=== PATIENT | female | born 1930 | race Caucasian/White ===

== ENCOUNTER 2017-02-18 06:55 | Observation (INO) ==
--- NOTE | 2017-02-18 07:29 | Emergency Department Note ---
General Adult HPI - General Source: patient Mode of arrival: wheelchair <Joe Pedro Doreen - Last Filed: 02/18/17 07:33> <Alan Huizar - Last Filed: 02/18/17 10:49> - General Chief complaint: Weakness Stated complaint: weakness Time Seen by Provider: 02/18/17 07:26 - History of Present Illness HPI Narrative: This patient had difficulty getting up and using the bathroom today due to generalized weakness especially in her legs. She has no other specific complaints. Denies cough fever sore throat dysuria frequency. (MayelaJoe ) - Related Data Home Medications Medication Instructions Recorded Confirmed acetaminophen 325 mg tablet 650 mg PO Q4H PRN tab 01/06/15 02/18/17 aspirin 81 mg tablet,delayed 81 mg PO QDAY tab 01/06/15 02/18/17 release calcium carbonate-vitamin D3 600 1 cap PO QDAY cap 01/06/15 02/18/17 mg calcium-200 unit capsule chondroitin sulfate A 250 mg 250 mg PO QDAY cap 01/06/15 02/18/17 capsule glucosamine sulfate 500 mg tablet 1,500 mg PO QDAY tab 01/06/15 02/18/17 multivitamin capsule 1 tab-cap PO QDAY cap 01/06/15 02/18/17 vit C 150 mg-vit E 30 unit-lutein 1 cap PO QDAY cap 01/06/15 02/18/17 5 [id number] 3 150 mg capsule cholecalciferol (vitamin D3) 1,000 1,000 unit PO QDAY cap 04/13/16 02/18/17 unit capsule fexofenadine 60 mg tablet 60 mg PO BID 11/21/16 02/18/17 Wheelchair 0 each .ROUTE .MEDSUPPLY 02/18/17 02/18/17 Previous Rx's Medication Instructions Recorded Ciprofloxacin [Cipro] 500 mg PO BID #20 tablet 02/18/17 Allergies Allergy/AdvReac Type Severity Reaction Status Date / Time codeine Allergy Severe Swelling Verified 02/18/17 07:00 of Lip/Tongue/Throat diazepam [From Valium] AdvReac Intermediate Weakness Verified 02/18/17 07:00 naproxen [From Aleve] AdvReac Intermediate Itching Verified 02/18/17 07:00 acetaminophen [From Ultracet] AdvReac Mild Nausea Verified 02/18/17 07:00 tramadol [From Ultracet] AdvReac Mild Nausea Verified 02/18/17 07:00 Review of Systems Constitutional: Denies: fever, chills Eyes: Denies: eye pain ENT ED: Denies: ear pain, throat pain Cardiovascular: Denies: chest pain Respiratory: Denies: cough, dyspnea Gastrointestinal: Denies: abdominal pain, nausea Genitourinary: Denies: urgency, dysuria, frequency Musculoskeletal: Denies: back pain Integumentary: Denies: rash <Joe Pedro - Last Filed: 02/18/17 07:33> Past Medical History - Past Medical History Medical history: Reports: arthritis, GERD, hyperlipidemia, osteoporosis, other ( History of cerebral atrophy) Surgical history ED: Reports: non-contributory, orthopedic, other, other ( History of subdural bleed) - Social History Alcohol use: Reports: None Drug use: Reports: none <Joe Pedro - Last Filed: 02/18/17 07:33> <Alan Huizar - Last Filed: 02/18/17 10:49> - Past Medical History [facility] Narrative: Medical History (Last Updated 01/28/17 @ 01:41 by Omar Robertson MD) Concussion without loss of consciousness (Acute) Encounter for removal of sutures (Acute) Osteopenia (Chronic) Arthritis, hip (Acute) Urinary tract infection (Acute) Weakness of left lower extremity (Chronic) History of bone density study (Chronic) Abdominal pain (Chronic) Abdominal symptoms (Chronic) Neurogenic syncope (Chronic) Compression fracture of lumbar vertebra (Chronic) History of sigmoidoscopy (Resolved 07/27/13) Dyslipidemia (Chronic) Osteoporosis screening (Chronic) DJD (degenerative joint disease) (Chronic) Neurocardiogenic syncope (Chronic) Diverticulosis of colon (Chronic 03/12/07) Tubular adenoma of colon (Chronic 04/24/13) Macular degeneration (Chronic) Tinnitus (Chronic) Cerebral atrophy (Inactive 12/25/14) Closed fracture of clavicle (Resolved) 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) Degeneration of cervical intervertebral disc (Inactive 12/25/14) 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) Glaucoma (Inactive) Head injury (Resolved 05/08/14) Herpes zoster (Resolved) Low back pain (Chronic) 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) Pseudophakia (Resolved) Subdural hematoma without coma (Inactive 08/11/14) Visual disturbance (Resolved) Past Surgical History (Last Updated 12/06/16 @ 14:28 by Sensorist) S/P wrist surgery (Resolved 05/28/13) History of tonsillectomy (Resolved) History of thumb surgery (Resolved 05/28/13) History of hysterectomy (Resolved) History of foot surgery (Resolved) History of colonoscopy with polypectomy (Resolved 03/12/07) History of breast biopsy (Resolved) Family History Father Acute myocardial infarction, Onset Age: 54 Mother Malignant neoplasm of uterus (Joe Pedro) Physical Exam - General Limitations: no limitations General appearance: alert, in no apparent distress - Head Head exam: atraumatic, normocephalic - Eye Eye exam: Present: normal appearance - ENT ENT exam: normal exam - Neck Neck exam: Present: normal inspection - Chest Chest inspection: Present: normal inspection - Respiratory Respiratory exam: Present: normal lung sounds bilaterally - Cardiovascular Cardiovascular exam: Present: regular rate, normal rhythm, normal heart sounds - Abdominal Exam Abdominal exam: Present: soft. Absent: distention, tenderness - Neurological Exam Neurological exam: Present: alert, oriented X3 - Expanded Neurological Exam Motor strength - LUE: 5/5 Motor strength - RUE: 5/5 Motor strength - LLE: 5/5 Motor strength - RLE: 5/5 - Psychiatric Psychiatric exam: Present: normal affect, normal mood - Skin Skin exam: Present: warm, dry, intact, normal color <Joe Pedro - Last Filed: 02/18/17 07:33> Vital Signs Temperature 98.6 F 02/18/17 06:55 Pulse Rate 89 02/18/17 06:55 Respiratory Rate 16 02/18/17 06:55 Blood Pressure 160/92 02/18/17 06:55 Pulse Oximetry (%) 97 02/18/17 06:55 Temperature 98.6 F 02/18/17 06:55 Pulse Rate 77 02/18/17 10:01 Respiratory Rate 20 02/18/17 10:24 Blood Pressure 151/79 02/18/17 10:01 Pulse Oximetry (%) 95 02/18/17 10:01 Medical Decision Making <Joe Pedro - Last Filed: 02/18/17 07:33> - Lab Data Lab results reviewed: Yes I reviewed the patient's lab results. Result diagrams: 02/18/17 07:30 02/18/17 07:33 - Radiology Data Radiology results reviewed: Yes I reviewed the patient's radiology results. - EKG Data EKG #1 EKG attestation: Yes I reviewed and interpreted this EKG. <Alan Huizar - Last Filed: 02/18/17 10:49> - Lab Data Lab Results 02/18/17 02/18/17 02/18/17 Range/Units 07:30 07:33 07:33 WBC 7.8 (4.5-11.0) K/mcL RBC 4.54 (4.00-5.20) M/mcL Hgb 14.0 (12.0-15.0) g/dL Hct 42.6 (36.0-48.0) % MCV 93.8 (80.0-100.0) fL MCH 30.8 (26.0-34.0) pg MCHC 32.8 (31.0-36.0) g/dL RDW 14.6 H (11.5-14.5) % Plt Count 213 (140-440) K/mcL MPV 7.7 (7.4-10.4) fL Gran % 58.5 (38.0-78.0) % Lymph % (Auto) 28.9 (15.5-49.0) % Evangeline % (Auto) 8.7 (1.0-12.0) % Eos % (Auto) 3.4 (0.0-7.0) % Baso % (Auto) 0.5 (0.0-2.0) % Gran # 4.5 (1.8-8.0) K/mcL Lymph # (Auto) 2.2 (1.5-4.8) K/mcL Evangeline # (Auto) 0.7 (0.1-0.9) K/mcL Eos # (Auto) 0.3 (0.0-0.7) K/mcL Baso # (Auto) 0 (0.0-0.3) K/mcL Sodium 143 (133-145) mmol/L Potassium 3.7 (3.3-5.1) mmol/L Chloride 104 (96-108) mmol/L Carbon Dioxide 27 (22-30) mmol/L Anion Gap 12.0 (8-16) BUN 22 (8-23) mg/dl Creatinine 0.7 (0.6-1.1) mg/dl GFR Calculation 78 Glucose 99 (70-105) mg/dL Calcium 9.2 (8.6-10.4) mg/dl Total Bilirubin 0.3 (0.0-1.0) mg/dL AST 22 (0-37) U/l ALT 16 (0-40) U/l Alkaline Phosphatase 69 (39-117) U/L Troponin T < 0.01 (0-0.03) ng/ml Total Protein 7.5 (5.9-8.4) gm/dL Albumin 3.9 (3.2-5.2) gm/dL Globulin 3.6 (2.2-3.7) gm/dL Albumin/Globulin Ratio 1.1 (1.0-2.3) Urine Color Urine Appearance Urine pH (5.0-9.0) Ur Specific [place] (1.000-1.035) Urine Protein (NEG) mg/dL Urine Glucose (UA) (NEG) mg/dL Urine Ketones (NEG) mg/dL Urine Occult Blood (<0.03) mg/dL Urine Nitrate (NEG) Urine Bilirubin (NEG) mg/dL Urine Urobilinogen (NEG) mg/dL Ur Leukocyte Esterase (NEG) /uL Ur Culture Indicated? 02/18/17 Range/Units 09:17 WBC (4.5-11.0) K/mcL RBC (4.00-5.20) M/mcL Hgb (12.0-15.0) g/dL Hct (36.0-48.0) % MCV (80.0-100.0) fL MCH (26.0-34.0) pg MCHC (31.0-36.0) g/dL RDW (11.5-14.5) % Plt Count (140-440) K/mcL MPV (7.4-10.4) fL Gran % (38.0-78.0) % Lymph % (Auto) (15.5-49.0) % Evangeline % (Auto) (1.0-12.0) % Eos % (Auto) (0.0-7.0) % Baso % (Auto) (0.0-2.0) % Gran # (1.8-8.0) K/mcL Lymph # (Auto) (1.5-4.8) K/mcL Evangeline # (Auto) (0.1-0.9) K/mcL Eos # (Auto) (0.0-0.7) K/mcL Baso # (Auto) (0.0-0.3) K/mcL Sodium (133-145) mmol/L Potassium (3.3-5.1) mmol/L Chloride (96-108) mmol/L Carbon Dioxide (22-30) mmol/L Anion Gap (8-16) BUN (8-23) mg/dl Creatinine (0.6-1.1) mg/dl GFR Calculation Glucose (70-105) mg/dL Calcium (8.6-10.4) mg/dl Total Bilirubin (0.0-1.0) mg/dL AST (0-37) U/l ALT (0-40) U/l Alkaline Phosphatase (39-117) U/L Troponin T (0-0.03) ng/ml Total Protein (5.9-8.4) gm/dL Albumin (3.2-5.2) gm/dL Globulin (2.2-3.7) gm/dL Albumin/Globulin Ratio (1.0-2.3) Urine Color Yellow Urine Appearance Hazy Urine pH 7.0 (5.0-9.0) Ur Specific [place] 1.018 (1.000-1.035) Urine Protein Neg (NEG) mg/dL Urine Glucose (UA) Negative (NEG) mg/dL Urine Ketones Neg (NEG) mg/dL Urine Occult Blood Neg (<0.03) mg/dL Urine Nitrate Neg (NEG) Urine Bilirubin Neg (NEG) mg/dL Urine Urobilinogen Neg (NEG) mg/dL Ur Leukocyte Esterase Neg (NEG) /uL Ur Culture Indicated? No Urinalysis lmdtx-by-brdn dipstick shows moderate leukocytes trace blood gravity 1.020 (Alan Huizar) - Radiology Data Chest x-ray shows no acute cardiopulmonary disease (Alan Huizar) - EKG Data EKG #1 EKG results narrative: EKG shows a rate of 75 with a left bundle branch block flattened T-wave in 1 with just slight inversion in aVL. Sinus rhythm (Alan Huizar) Disposition <Joe Pedro - Last Filed: 02/18/17 07:33> Pt seen by TUBE COVERER/PA only: No ( only) <Alan Huizar - Last Filed: 02/18/17 10:49> Clinical Impression: Weakness UTI (urinary tract infection) Qualifiers: Urinary tract infection type: acute cystitis Hematuria presence: with hematuria Qualified Code(s): N30.01 - Acute cystitis with hematuria Summary: Workup done for weakness. Given IV fluids. Found to have UTI and treated with Rocephin here with prescription for ciprofloxacin sent to pharmacy. Attempted to send this patient home after getting antibiotics but patient is unable to stand or transfer-which she was able to do 2 days ago. I discussed the case with Dr. Pierre the hospitalist who agreed to accept the patient for treatment of UTI with global weakness. (Alan Huizar) Disposition: Xfer As Outpt/Obs ([facility]) Condition: Fair Prescriptions: Ciprofloxacin [Cipro] 500 mg PO BID #20 tablet Referrals: Francis Meek MD [Primary Care Provider] -
[2017-02-18] MEDS ORDERED: 0.9 % SODIUM CHLORIDE 1,000 ML IV ONE (07:30)
[2017-02-18 08:18] LABS: Basophils # (Auto) 0 K/mcL (0.0-0.3); Basophils % (Auto) 0.5 % (0.0-2.0); Eosinophils # (Auto) 0.3 K/mcL (0.0-0.7); Eosinophils % (Auto) 3.4 % (0.0-7.0); Granulocytes % (Auto) 58.5 % (38.0-78.0); Lymphocytes # (Auto) 2.2 K/mcL (1.5-4.8); Lymphocytes % (Auto) 28.9 % (15.5-49.0); Mean Cell Volume 93.8 fL (80.0-100.0); Mean Corpuscular HGB Conc 32.8 g/dL (31.0-36.0); Mean Corpuscular Hemoglobin 30.8 pg (26.0-34.0); Monocytes # (Auto) 0.7 K/mcL (0.1-0.9); Monocytes % (Auto) 8.7 % (1.0-12.0); Platelet Count 213 K/mcL (140-440); RBC 4.54 M/mcL (4.00-5.20); Red Cell Distribution Width 14.6 % (11.5-14.5)
[2017-02-18 08:39] LABS: ALT/SGPT 16 U/l (0-40); Albumin 3.9 gm/dL (3.2-5.2); Albumin/Globulin Ratio 1.1 (1.0-2.3); Alkaline Phosphatase 69 U/L (39-117); Blood Urea Nitrogen 22 mg/dl (8-23)
--- NOTE | 2017-02-18 08:57 | XRay Report ---
CLINICAL INFORMATION: Shortness of breath and weakness COMPARISON: 01/13/2015 FINDINGS: The heart is borderline enlarged, but unchanged. Mediastinum and pulmonary vessels are normal. Lungs are clear. No effusions. IMPRESSION: Borderline cardiomegaly - stable. No acute disease Interpreted and Authenticated by: Jermaine Ruffin 02/18/17
[2017-02-18] MEDS ORDERED: cefTRIAXone 1 GM in DEXTROSE 5% IN WATER 50 ML IV ONE (10:08)
[2017-02-18 10:09] LABS: Appearance,Urine HAZY; Bilirubin,Urine NEG (NEG); Color,Urine YELLOW; Glucose,Urine (UA) NEGATIVE (NEG); Leukocyte Esterase,Urine NEG /uL (NEG); Nitrate,Urine NEG (NEG); Protein,Urine NEG (NEG); Specific Gravity,Urine 1.018 (1.000-1.035); Urine Blood NEG mg/dL (<0.03); Urobilinogen,Urine NEG (NEG)
[2017-02-18] MEDS ORDERED: ONDANSETRON 4 MG/2 ML VIAL IV PRN (12:07)
[2017-02-18] MEDS ORDERED: DOCUSATE SODIUM 100 MG CAPSULE PO PRN (12:07)
[2017-02-18] MEDS ORDERED: MAGNESIUM HYDROXIDE 30 ML ORAL.SUSP PO PRN (12:07)
--- NOTE | 2017-02-18 12:08 | Internal Med History&Physical ---
Medical - H&P: HPI Patient information: Note initiated : 02/18/17 at 12:05 pm Patient: Shantelle Evangelista a 87 y/o F admitted on 02/18/17 for Weakness. History of present illness: Ms. Evangelista is a 87 year old female who lives at home with her . He reports she was in her normal state of health until about 2 years ago when she fell and hit her head and suffered a concussion. He said she seemed to suffer a real setback at that time. Old records indicate a subdural hematoma found in 2014. Then, about 4 months ago, she slipped in the tub, and hit her head again, causing a scalp laceration. He says since that time she has really been too weak to walk, and he generally has to get her up in the morning, help her get dressed, and then help her into a wheelchair. He helps her with toileting in most activities of daily living. She has been receiving physical therapy twice a week, and just a few days ago was able to stand up and walk to the bathroom with a walker, for the first time in years. However, this morning, he said she was rather limp and he could not get her to stand up at all. She just seemed extremely fatigued. She has not complained of fever or chills. She says she may have been a little bit dizzy, but is not sure. She does have chronic urinary frequency, but does not think this is changed. She denied painful urination. She denies headaches , new eye or ear symptoms, sore throat or cough, chest pain or palpitations, shortness of breath, abdominal pain, nausea or vomiting, diarrhea or constipation. He initially tells me that her memory is fine, but then admits that sometimes she does not even seem to recognize him. He did tell me that he believes she took a Tylenol PM last night before bed, for uncertain reasons. This is a new medication for her. ER evaluation showed elevated blood pressure, and apparent urinary tract infection. The ER gave her fluids and antibiotics, and try to ambulate her, but she was just too weak to even sit up on her own. She has now admitted for further observation and treatment. Medical History Arthritis, hip (Acute) Concussion without loss of consciousness, 2 years ago, with progressive weakness since then. Encounter for removal of sutures (Acute) Osteopenia (Acute) noted on 2015 DEXA Urinary tract infection (Acute) Abdominal pain (Chronic) CT neg 03/2015 Compression fracture of lumbar vertebra (Chronic) DJD (degenerative joint disease) (Chronic) Multi-joint degenerative arthritis with probably a component of left hip bursitis. Diverticulosis of colon (Chronic 03/12/07) 03/12/07--Colonoscopy--Dr. Kathleen--Normal colonoscopy; moderately severe but uncomplicated diverticulosis. No rescreen unless new clinical issue arises. Dyslipidemia (Chronic) Currently on Zocor & watches diet; no myalgias. History of bone density study (Chronic) T score -0.7 spine//-1.3 hip 02/2010 Low back pain (Chronic) H/O low back pain wtih previous spinal compression fractures and documented osteoporosis in the late with a T-score of -4.1. Prolonged use of bisphosphonates--Fosamax D/C'd 2009. Normal bone density 02/2010. Macular degeneration (Chronic) Neurocardiogenic syncope (Chronic) H/O neurocardiogenic syncope. Previous treatment with beta bulmaro. Stable office treadmill 04/2009, recurrent near syncope, palpitations with negative [facility] 02/2011. Cardiology review with Dr. Moore 03/2011--stable. Osteoporosis screening (Chronic) H/O osteoporosis compression fractures. Stable bone density 03/16/10 with Spine T-score -0.7 and Hip T-score -1.3. Normal Vitamin D level 03/13/10 at 38.2. Previously on Fosamax--discontinued 2009. Monitor N-telopeptide yearly. Tinnitus (Chronic) Pulsatile tinnitus with negative MRI and ENT review--December through February 2011. Tubular adenoma of colon (Chronic 04/24/13) 04/24/13 Colonoscopy--Dr. Kathleen--Tubular adenomas. 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 Closed fracture of clavicle (Resolved) Head injury (Resolved 05/08/14) ER Dr. Dexter; Fallen Herpes zoster (Resolved) Episode of herpes zoster 10/2010. 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 Parker Surgical History History of breast biopsy (Resolved) Previous breast biopsy X2. Breast exam stable; currently declines mammogram. History of colonoscopy with polypectomy (Resolved 03/12/07) 03/12/07--Colonoscopy--Dr. Kathleen--Normal colonoscopy; moderately severe but uncomplicated diverticulosis. No rescreen unless new clinical issue arises. 04/24 Colonoscopy--Dr. Kathleen--Tubular adenomas. 07/27/2013-- Hyperplastic polyp. History of foot surgery (Resolved) Foot surgery 12/1997 and 08/1999 History of hysterectomy (Resolved) S/P hysterectomy 1970; ovaries remain. Negative bimanual. Stable breast exam-- declines mammogram. History of thumb surgery (Resolved 05/28/13) Right thumb carpometacarpal joint ligament reconstruction and tendon interposition using flexor carpi redialis tendon autograft. History of tonsillectomy (Resolved) 1937 S/P wrist surgery (Resolved 05/28/13) Right wrist trapeziectomy Medication List Tylenol PM, 1 dose for the first time, last night. acetaminophen 650 mg (2 x 325 mg) PO Q4H PRN aspirin 81 mg PO QDAY calcium carbonate-vitamin D3 600 mg calcium- 200 unit 1 cap PO QDAY cholecalciferol (vitamin D3) 1,000 units PO QDAY chondroitin sulfate A 250 mg PO QDAY glucosamine sulfate 1,500 mg (3 x 500 mg) PO QDAY multivitamin capsule 1 tab-cap PO QDAY vit C-vit [id number] [id number] pv-qtji-no-mg 1 cap PO QDAY wheelchair with accessories. use as directed. GUNNAR: Lifetime Allergies/Adverse Reactions codeine Allergy Swelling of Lip/Tongue/Throat diazepam [From Valium] Adverse Reaction Weakness naproxen [From Aleve] Adverse Reaction Itching tramadol [From Ultracet] Adverse Reaction Nausea Family History Father Acute myocardial infarction, Onset Age: 54 Mother Malignant neoplasm of uterus Hysterectomy for Uterine CA at an older age. The patient states she cannot recall this at this time. Social History The patient is , and lives at home with her , who acts as her caregiver. They have been for more than 50 years. She says she drinks 1 glass of wine per day. She does not use tobacco or drugs. She has 2 sons, one lives in [place], and the other into [facility]. She generally gets around in a wheelchair now, and her helps her transfer in and out of that. Medical - H&P: Meds Home Medications Medication Instructions Recorded Confirmed Type acetaminophen 325 mg tablet 650 mg PO Q4H PRN tab 01/06/15 02/18/17 History aspirin 81 mg tablet,delayed 81 mg PO QDAY tab 01/06/15 02/18/17 History release calcium carbonate-vitamin D3 600 1 cap PO QDAY cap 01/06/15 02/18/17 History mg calcium-200 unit capsule chondroitin sulfate A 250 mg 250 mg PO QDAY cap 01/06/15 02/18/17 History capsule glucosamine sulfate 500 mg tablet 1,500 mg PO QDAY tab 01/06/15 02/18/17 History multivitamin capsule 1 tab-cap PO QDAY cap 01/06/15 02/18/17 History vit C 150 mg-vit E 30 unit-lutein 1 cap PO QDAY cap 01/06/15 02/18/17 History 5 jj-pkrwpkdf-lzzxe 3 150 mg capsule cholecalciferol (vitamin D3) 1,000 1,000 unit PO QDAY cap 04/13/16 02/18/17 History unit capsule fexofenadine 60 mg tablet 60 mg PO BID 11/21/16 02/18/17 History Ciprofloxacin [Cipro] 500 mg PO BID #20 tablet 02/18/17 Rx Wheelchair 0 each .ROUTE .MEDSUPPLY 02/18/17 02/18/17 History Allergies Allergy/AdvReac Type Severity Reaction Status Date / Time codeine Allergy Severe Swelling Verified 02/18/17 07:00 of Lip/Tongue/Throat diazepam [From Valium] AdvReac Intermediate Weakness Verified 02/18/17 07:00 naproxen [From Aleve] AdvReac Intermediate Itching Verified 02/18/17 07:00 tramadol [From Ultracet] AdvReac Mild Nausea Verified 02/18/17 07:00 Medical - H&P: Exam - Constitutional Vitals: Temp Pulse Resp BP Pulse Ox 98.6 F 88 20 165/94 97 02/18/17 06:55 02/18/17 11:01 02/18/17 10:24 02/18/17 11:01 02/18/17 11:01 On exam, she is a very frail appearing elderly female, who is otherwise in no acute distress. She appears a bit fatigued. Oxygen level did drop to 87% saturation at one point, on room air. Pressure peaked at 210/112, but is most recently 142/65. . Head: Normocephalic, atraumatic. Eyes: PERRLA, EOMI, anicteric. Ears: TMs and canals are clear. Pharynx: Is clear. Mucosa appears normal. Posterior pharynx looks fine. Neck: Is supple, without obvious JVD, lymphadenopathy, thyromegaly, bruits. Cardiac exam: Shows regular rate and rhythm with normal S1 and S2. There may be a very soft systolic murmur at the apex. No rubs or gallops are noted. Lungs: Are clear to auscultation, without rales, rhonchi, wheezes. Abdomen: Is soft, without guarding or rebound. Bowel sounds are normoactive. She does indicate some tenderness in the lower abdomen, mainly in the suprapubic area. Extremities: Show no cyanosis, clubbing, edema. Neurologic exam: Her speech is very soft, and just slightly slurred. She is alert, and answers questions appropriately, but does appear a bit forgetful. She is calm and cooperative. Otherwise, her exam is grossly nonfocal. Skin exam: Does not show any rashes or other worrisome lesions. Medical - H&P: Reslt - Labs CBC & Chem 7: 02/18/17 07:30 02/18/17 07:33 Labs: February 18: CBC differential shows RDW of 14.6. Otherwise differential is normal. Troponin T is normal at less than 0.01 Urinalysis shows a pH of 7.0, specific gravity 1.018, negative nitrites, negative leukocyte esterase. Chest x-ray: Shows borderline cardiomegaly. No obvious infiltrates or congestion. EKG shows apparent normal sinus rhythm at a rate of about 75. There is left axis deviation, and slow R-wave progression consistent with possible old anteroseptal [place], versus intraventricular conduction delay. I do not see an old EKG in the chart, to compare. Medical - H&P: A/P (1) Weakness Current visit: Yes Status: Acute (2) Elevated BP without diagnosis of hypertension Current visit: No Status: Acute (3) Neurocardiogenic syncope Problem details: H/O neurocardiogenic syncope. Previous treatment with beta bulmaro. Stable office treadmill 04/2009, recurrent near syncope, palpitations with negative [facility] 02/2011. Cardiology review with Dr. Moore 03/2011 --stable. Current visit: No Status: Chronic - Narrative A/P Narrative: #1. Neurologic. Acute and subacute weakness, with general decline at home over the last couple of years. She has had several falls, with at least 2 closed head injuries. She did take Tylenol with Benadryl last night, and this may well have been enough to depress her mental status and just not allow her to wake up and be functional today. I was told that she had evidence of a bladder infection, but her urinalysis looks fine to me. Apparently a urine dip in the ER suggested increased leukocyte esterase. -Because the patient is too weak for her to handle at home, she was admitted for observation. -IV fluids. -Norris catheter at her request, so she does not have to get up and down to urinate. -Withhold Benadryl and any other medications with MASTER PLANNER depressant effects. -I suspect she has underlying dementia, given her memory issues and her decline physically over the last couple of years. Certainly if she has Alzheimer's, we should be avoiding anticholinergic drugs. She has had at least one office visit , where the complained of increased drooling. -PT evaluation. -Office records indicate the has adamantly refused to consider assisted living in the past. We will ask case management to look into the living situation as well. Her elderly may ultimately need more help at home with the patient, than they are currently receiving. -If her strength does not improve, consideration could be given to follow-up head CT and/or MRI. 2. Hypertension. Patient has had elevated blood pressures in her primary care office, as well as here today. Blood pressure seems to be improving though, now that she is comfortable. Continue to monitor. 3. I discussed CODE STATUS with the patient and her . He would like her to remain a full code at this time, even though we discussed that if she needed to be coated she would not likely have a good outcome. Next 4. DVT prophylaxis: Subcu heparin. 5. History of arthritis, osteopenia, compression fractures. Continue Tylenol as needed for pain. It sounds like she generally does not require more than that. #6. Cardiac. 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 She apparently has not had any events recently. Approximately 55 minutes was spent today, reviewing the patient's old records, reviewing her case with the ER MD, reviewing today's test results, interviewing and examining her, and then reviewing plan of care with her , and writing orders.
[2017-02-18] MEDS: DEXTROSE 5%-1/2NS W/20MEQ KCL 1,000 ML IV SCH ×2 (12:18→20:27)
[2017-02-18] MEDS: 0.9 % SODIUM CHLORIDE 10 ML SYRINGE IV SCH ×2 (12:45→22:00)
[2017-02-18] MEDS ORDERED: ACETAMINOPHEN 325 MG TABLET PO PRN (18:23)
[2017-02-19] MEDS: DEXTROSE 5%-1/2NS W/20MEQ KCL 1,000 ML IV SCH ×3 (04:10→21:41)
[2017-02-19 05:50] LABS: Basophils # (Auto) 0 K/mcL (0.0-0.3); Basophils % (Auto) 0.4 % (0.0-2.0); Eosinophils # (Auto) 0.2 K/mcL (0.0-0.7); Granulocytes % (Auto) 61.4 % (38.0-78.0); Lymphocytes # (Auto) 2.3 K/mcL (1.5-4.8); Lymphocytes % (Auto) 27.3 % (15.5-49.0); Mean Cell Volume 93.8 fL (80.0-100.0); Mean Corpuscular HGB Conc 33.6 g/dL (31.0-36.0); Mean Corpuscular Hemoglobin 31.5 pg (26.0-34.0); Monocytes # (Auto) 0.8 K/mcL (0.1-0.9); Monocytes % (Auto) 8.9 % (1.0-12.0); Platelet Count 246 K/mcL (140-440); RBC 4.39 M/mcL (4.00-5.20); Red Cell Distribution Width 14.1 % (11.5-14.5)
[2017-02-19 06:04] LABS: ALT/SGPT 14 U/l (0-40); Albumin 3.7 gm/dL (3.2-5.2); Albumin/Globulin Ratio 1.2 (1.0-2.3); Alkaline Phosphatase 70 U/L (39-117); Bilirubin,Direct < 0.2 mg/dL (0.0-0.3); Blood Urea Nitrogen 8 mg/dl (8-23); Gamma Glutamyl Transpeptidase 12 U/L (5-36); Magnesium 1.9 mg/dL (1.6-2.5); Uric Acid 2.9 mg/dL (2.5-8.0)
[2017-02-19] MEDS: 0.9 % SODIUM CHLORIDE 10 ML SYRINGE IV SCH ×3 (06:09→21:41)
[2017-02-19] MEDS: MULTIVIT,THER IRON,CA,FA & MIN 1 TABLET PO SCH (09:21)
[2017-02-19] MEDS: VITAMIN D3 1,000 UNIT TABLET PO SCH (09:21)
[2017-02-19] MEDS: ASPIRIN 81 MG TAB.CHEW PO SCH (09:21)
[2017-02-19] MEDS: CALCIUM W/VIT D3 500 MG TABLET PO SCH (09:21)
[2017-02-19] MEDS: ENOXAPARIN 40 MG/0.4 ML SYRINGE SQ SCH (09:21)
[2017-02-19] MEDS: cefTRIAXone 1 GM in DEXTROSE 5% IN WATER 50 ML IV SCH (09:21)
[2017-02-19] MEDS: CHONDROITIN SULFATE PO SCH (10:31)
[2017-02-19] MEDS: GLUCOSAMINE SULFATE 1500 MG PO SCH (10:31)
--- NOTE | 2017-02-19 12:42 | Internal Med Progress Note ---
Medical - PN: Subj Patient information: Note initiated : 02/19/17 at 12:40 pm Service Date, if different from initiated Date: [] Patient: Shantelle Evangelista a 87 y/o F admitted on 02/18/17 for Weakness/UTI. Chief Complaint: [] Interval history: February 18, 2017: History of present illness: Ms. Evangelista is a 87 year old female who lives at home with her . He reports she was in her normal state of health until about 2 years ago when she fell and hit her head and suffered a concussion. He said she seemed to suffer a real setback at that time. Old records indicate a subdural hematoma found in 2014. Then, about 4 months ago, she slipped in the tub, and hit her head again, causing a scalp laceration. He says since that time she has really been too weak to walk, and he generally has to get her up in the morning, help her get dressed, and then help her into a wheelchair. He helps her with toileting in most activities of daily living. She has been receiving physical therapy twice a week, and just a few days ago was able to stand up and walk to the bathroom with a walker, for the first time in years. However, this morning, he said she was rather limp and he could not get her to stand up at all. She just seemed extremely fatigued. She has not complained of fever or chills. She says she may have been a little bit dizzy, but is not sure. She does have chronic urinary frequency, but does not think this is changed. She denied painful urination. She denies headaches , new eye or ear symptoms, sore throat or cough, chest pain or palpitations, shortness of breath, abdominal pain, nausea or vomiting, diarrhea or constipation. He initially tells me that her memory is fine, but then admits that sometimes she does not even seem to recognize him. He did tell me that he believes she took a Tylenol PM last night before bed, for uncertain reasons. This is a new medication for her. ER evaluation showed elevated blood pressure, and apparent urinary tract infection. The ER gave her fluids and antibiotics, and try to ambulate her, but she was just too weak to even sit up on her own. She has now admitted for further observation and treatment. February 19: Overnight, the patient was quite confused, and kept insisting that her was in the next room. This morning she remains confused, and tells me that she was just walking around in her kitchen. Her admits that she is often confused like this at home. She remains a 2 person maximum assist to move from bed. I discussed rehab with the patient's , but he says she has never wanted to go to rehab, and he would prefer to have her at home. Social work is discussing with him options for care, as he would not be able to provide her safe care by himself. The patient is too confused to give a good history. She denies any pain or shortness of breath. - Constitutional Vitals: Vital Signs Temp Pulse Resp BP Pulse Ox 98.2 F 80 20 151/87 98 02/19/17 11:38 02/19/17 11:38 02/19/17 11:38 02/19/17 11:38 02/19/17 11:38 Period Temp Pulse Resp BP Sys/Duggan Pulse Ox Last 24 Hr 97.6 F-98.4 F 75-88 16-20 142-176/65-87 96-98 Intake and Output 02/18/17 02/19/17 02/19/17 21:59 05:59 13:59 Intake Total 1100 / 1100 1085 / 1085 540 / 540 Output Total 975 / 975 850 / 850 950 / 950 Balance 125 / 125 235 / 235 -410 / -410 Weight 133 lb Intake & Output: Intake & Output 02/18/17 02/19/17 02/19/17 21:59 05:59 13:59 Intake Total 1100 / 1100 1085 / 1085 540 / 540 Output Total 975 / 975 850 / 850 950 / 950 Balance 125 / 125 235 / 235 -410 / -410 Weight 133 lb Intake: IV 1000 / 1000 965 / 965 Oral 100 / 100 120 / 120 540 / 540 Output: Urine Catheter Amount 750 / 750 850 / 850 950 / 950 Void Amount 225 / 225 Other: Meal Breakfast Percent of Meal Consumed 50% Feeding Ability Independent Pleasantly confused. In no acute distress. Neck is supple without obvious lymphadenopathy or JVD. Cardiac exam shows regular rate and rhythm. Lungs are clear to auscultation. Abdomen is soft and nontender. Norris catheter is draining clear yellow urine. Extremities show no edema. Neurologic exam: The patient does not appear to be oriented to place. Motor exam is grossly nonfocal, but she has trouble even sitting up in bed, and tends to resist any assistance. Medical - PN: Obj Da - Labs CBC & Chem 7: 02/19/17 04:23 02/19/17 04:23 Labs: Abnormal Lab Results 02/19/17 04:23 Creatinine 0.5 L Glucose 137 H Calcium 8.5 L Phosphorus 2.4 L February 19: Urine culture is negative so far. February 18: CBC differential shows RDW of 14.6. Otherwise differential is normal. Troponin T is normal at less than 0.01 Urinalysis shows a pH of 7.0, specific gravity 1.018, negative nitrites, negative leukocyte esterase. Chest x-ray: Shows borderline cardiomegaly. No obvious infiltrates or congestion. EKG shows apparent normal sinus rhythm at a rate of about 75. There is left axis deviation, and slow R-wave progression consistent with possible old anteroseptal [place], versus intraventricular conduction delay. I do not see an old EKG in the chart, to compare. Meds: Medications Acetaminophen (Tylenol) 650 mg PO Q4-6HP PRN PRN Reason: PAIN/FEVER > 101 Aspirin (Aspirin) 81 mg PO DAILY [facility] Last Admin: 02/19/17 09:21 Dose: 81 mg Calcium/Vitamin D (Calcium W/Vit D3) 500 mg PO DAILY [facility] Last Admin: 02/19/17 09:21 Dose: 500 mg Docusate Sodium (Colace) 100 mg PO BID PRN PRN Reason: Constipation Enoxaparin Sodium (Lovenox) 40 mg SQ DAILY [facility] Last Admin: 02/19/17 09:21 Dose: 40 mg Ceftriaxone Sodium 1 gm/ (Dextrose) 50 mls @ 100 mls/hr IV Q24H [facility] Last Admin: 02/19/17 09:21 Dose: 100 mls/hr Potassium Chloride/Dextrose/Sod Cl (Dextrose 5%-1/2ns W/20meq Kcl) 1,000 mls @ 125 mls/hr IV Q8H [facility] Last Admin: 02/19/17 04:10 Dose: 125 mls/hr Iron Carb/Multivit/[place]/Folic Acid (Multivitamin W/Minerals) 1 tab PO DAILY [facility] Last Admin: 02/19/17 09:21 Dose: 1 tab Magnesium Hydroxide (Milk Of Magnesia) 30 ml PO DAILYP PRN PRN Reason: Constipation Ondansetron HCl (Zofran) 4 mg IV Q6HP PRN PRN Reason: Nausea And Vomiting Chondroitin Sulfate (250 Mg Cap) 1 dose PO QDAY [facility] Last Admin: 02/19/17 10:31 Dose: Not Given Glucosamine Sulfate [Cidatrine] 1,500 Mg Tab 1 dose PO QDAY [facility] Last Admin: 02/19/17 10:31 Dose: Not Given Sodium Chloride (Saline Flush) 10 ml IV Q8 [facility] Last Admin: 02/19/17 06:09 Dose: Not Given Vitamin D (Vitamin D3) 1,000 unit PO DAILY [facility] Last Admin: 02/19/17 09:21 Dose: 1,000 unit Medical - PN: A/P - Time Spent With Patient Total time spent is greater than 50% in coordination of care (as documented) at patient's floor/unit and/or counseling patient: 25 - 35 minutes (1) Weakness Status: Acute Current Visit: Yes (2) Elevated BP without diagnosis of hypertension Status: Acute Current Visit: No (3) Neurocardiogenic syncope Problem details: H/O neurocardiogenic syncope. Previous treatment with beta bulmaro. Stable office treadmill 04/2009, recurrent near syncope, palpitations with negative [facility] 02/2011. Cardiology review with Dr. Moore 03/2011 --stable. Status: Chronic Current Visit: No - Narrative A/P Narrative: #1. Neurologic. Acute and subacute weakness, with general decline at home over the last couple of years. She has had several falls, with at least 2 closed head injuries. She did take Tylenol with Benadryl last night, and this may well have been enough to depress her mental status and just not allow her to wake up and be functional today. I was told that she had evidence of a bladder infection, but her urinalysis looks fine to me. Apparently a urine dip in the ER suggested increased leukocyte esterase. Her behavior overnight would suggest that she does have an underlying dementia. I suspect she is just on a slow general decline. She is certainly not safe according to physical therapy, to return home with minimal assistance at this time. -Social work is discussing options for care with the , although he seems resistant to any idea other than taking her home. -Norris catheter at her request, so she does not have to get up and down to urinate. -Withhold Benadryl and any other medications with TRIP FOLLOWER depressant effects. -PT/OT evaluation and treatment. -Office records indicate the has adamantly refused to consider assisted living in the past. We asked case management to look into the living situation as well. Her elderly may ultimately need more help at home with the patient, than they are currently receiving. -If her strength does not improve, consideration could be given to follow-up head CT and/or MRI. 2. Hypertension. Patient has had elevated blood pressures in her primary care office, as well as here today. Blood pressure seems to be improving though, now that she is comfortable. Continue to monitor. 3. I discussed CODE STATUS with the patient and her . He would like her to remain a full code at this time, even though we discussed that if she needed to be coated she would not likely have a good outcome. Next 4. DVT prophylaxis: Subcu heparin. 5. History of arthritis, osteopenia, compression fractures. Continue Tylenol as needed for pain. It sounds like she generally does not require more than that. #6. Cardiac. 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 She apparently has not had any events recently. Approximately 30 minutes was spent today, interviewing and examining the patient , reviewing plan of care with our multidisciplinary team, as well as with the , and writing orders.
[2017-02-20] MEDS: DEXTROSE 5%-1/2NS W/20MEQ KCL 1,000 ML IV SCH (05:28)
[2017-02-20] MEDS: 0.9 % SODIUM CHLORIDE 10 ML SYRINGE IV SCH (06:00)
[2017-02-20 06:01] LABS: ALT/SGPT 12 U/l (0-40); Albumin 3.4 gm/dL (3.2-5.2); Albumin/Globulin Ratio 1.1 (1.0-2.3); Alkaline Phosphatase 66 U/L (39-117); Bilirubin,Direct < 0.2 mg/dL (0.0-0.3); Blood Urea Nitrogen 8 mg/dl (8-23); Gamma Glutamyl Transpeptidase 11 U/L (5-36); Magnesium 1.9 mg/dL (1.6-2.5); Uric Acid 2.5 mg/dL (2.5-8.0)
--- NOTE | 2017-02-20 07:14 | Internal Med Progress Note ---
Medical - PN: Subj Patient information: Note initiated : 02/20/17 at 7:12 am Service Date, if different from initiated Date: [] Patient: Shantelle Evangelista a 87 y/o F admitted on 02/18/17 for Weakness/UTI. Chief Complaint: [] Interval history: February 18, 2017: History of present illness: Ms. Evangelista is a 87 year old female who lives at home with her . He reports she was in her normal state of health until about 2 years ago when she fell and hit her head and suffered a concussion. He said she seemed to suffer a real setback at that time. Old records indicate a subdural hematoma found in 2014. Then, about 4 months ago, she slipped in the tub, and hit her head again, causing a scalp laceration. He says since that time she has really been too weak to walk, and he generally has to get her up in the morning, help her get dressed, and then help her into a wheelchair. He helps her with toileting in most activities of daily living. She has been receiving physical therapy twice a week, and just a few days ago was able to stand up and walk to the bathroom with a walker, for the first time in years. However, this morning, he said she was rather limp and he could not get her to stand up at all. She just seemed extremely fatigued. She has not complained of fever or chills. She says she may have been a little bit dizzy, but is not sure. She does have chronic urinary frequency, but does not think this is changed. She denied painful urination. She denies headaches , new eye or ear symptoms, sore throat or cough, chest pain or palpitations, shortness of breath, abdominal pain, nausea or vomiting, diarrhea or constipation. He initially tells me that her memory is fine, but then admits that sometimes she does not even seem to recognize him. He did tell me that he believes she took a Tylenol PM last night before bed, for uncertain reasons. This is a new medication for her. ER evaluation showed elevated blood pressure, and apparent urinary tract infection. The ER gave her fluids and antibiotics, and try to ambulate her, but she was just too weak to even sit up on her own. She has now admitted for further observation and treatment. February 19: Overnight, the patient was quite confused, and kept insisting that her was in the next room. This morning she remains confused, and tells me that she was just walking around in her kitchen. Her admits that she is often confused like this at home. She remains a 2 person maximum assist to move from bed. I discussed rehab with the patient's , but he says she has never wanted to go to rehab, and he would prefer to have her at home. Social work is discussing with him options for care, as he would not be able to provide her safe care by himself. The patient is too confused to give a good history. She denies any pain or shortness of breath. 02/20: Confused this AM, reaching for things in room that aren't there. Unable to work call light or TV remote. - Constitutional Vitals: Vital Signs Temp Pulse Resp BP Pulse Ox 97.6 F 92 H 20 168/87 97 02/20/17 04:00 02/20/17 04:00 02/20/17 04:00 02/20/17 04:00 02/20/17 04:00 Period Temp Pulse Resp BP Sys/[place]gan Pulse Ox Last 24 Hr 97.5 F-98.4 F 75-95 20-22 118-168/70-87 97-98 Intake and Output 02/19/17 02/20/17 02/20/17 21:59 05:59 13:59 Intake Total 1100 / 1100 1073 / 1073 Output Total 1600 / 1600 Balance 1100 / 1100 -527 / -527 Weight 130 lb Intake & Output: Intake & Output 02/19/17 02/20/17 02/20/17 21:59 05:59 13:59 Intake Total 1100 / 1100 1073 / 1073 Output Total 1600 / 1600 Balance 1100 / 1100 -527 / -527 Weight 130 lb Intake: IV 1000 / 1000 973 / 973 Oral 100 / 100 100 / 100 Output: Urine Catheter Amount 1600 / 1600 Other: Meal Dinner Percent of Meal Consumed 100% Feeding Ability Independent Medical - PN: Obj Da - Labs CBC & Chem 7: 02/19/17 04:23 02/20/17 04:54 Labs: Abnormal Lab Results 02/20/17 02/19/17 04:54 04:23 Creatinine 0.5 L 0.5 L Glucose 129 H 137 H Calcium 8.5 L 8.5 L Phosphorus 2.4 L Meds: Medications Acetaminophen (Tylenol) 650 mg PO Q4-6HP PRN PRN Reason: PAIN/FEVER > 101 Last Admin: 02/20/17 05:45 Dose: 650 mg Aspirin (Aspirin) 81 mg PO DAILY [facility] Last Admin: 02/19/17 09:21 Dose: 81 mg Calcium/Vitamin D (Calcium W/Vit D3) 500 mg PO DAILY [facility] Last Admin: 02/19/17 09:21 Dose: 500 mg Docusate Sodium (Colace) 100 mg PO BID PRN PRN Reason: Constipation Enoxaparin Sodium (Lovenox) 40 mg SQ DAILY [facility] Last Admin: 02/19/17 09:21 Dose: 40 mg Ceftriaxone Sodium 1 gm/ (Dextrose) 50 mls @ 100 mls/hr IV Q24H [facility] Last Admin: 02/19/17 09:21 Dose: 100 mls/hr Potassium Chloride/Dextrose/Sod Cl (Dextrose 5%-1/2ns W/20meq Kcl) 1,000 mls @ 125 mls/hr IV Q8H [facility] Last Admin: 02/20/17 05:28 Dose: 125 mls/hr Iron Carb/Multivit/[place]/Folic Acid (Multivitamin W/Minerals) 1 tab PO DAILY [facility] Last Admin: 02/19/17 09:21 Dose: 1 tab Magnesium Hydroxide (Milk Of Magnesia) 30 ml PO DAILYP PRN PRN Reason: Constipation Ondansetron HCl (Zofran) 4 mg IV Q6HP PRN PRN Reason: Nausea And Vomiting Chondroitin Sulfate (250 Mg Cap) 1 dose PO QDAY [facility] Last Admin: 02/19/17 10:31 Dose: Not Given Glucosamine Sulfate [Cidatrine] 1,500 Mg Tab 1 dose PO QDAY [facility] Last Admin: 02/19/17 10:31 Dose: Not Given Sodium Chloride (Saline Flush) 10 ml IV Q8 [facility] Last Admin: 02/20/17 06:00 Dose: Not Given Vitamin D (Vitamin D3) 1,000 unit PO DAILY [facility] Last Admin: 02/19/17 09:21 Dose: 1,000 unit Medical - PN: A/P - Time Spent With Patient Total time spent is greater than 50% in coordination of care (as documented) at patient's floor/unit and/or counseling patient: - Narrative A/P Narrative: #1. Neurologic. Acute and subacute weakness, with general decline at home over the last couple of years. She has had several falls, with at least 2 closed head injuries. She did take Tylenol with Benadryl last night, and this may well have been enough to depress her mental status and just not allow her to wake up and be functional today. I was told that she had evidence of a bladder infection, but her urinalysis looks fine to me. Apparently a urine dip in the ER suggested increased leukocyte esterase. Her behavior overnight would suggest that she does have an underlying dementia. I suspect she is just on a slow general decline. She is certainly not safe according to physical therapy, to return home with minimal assistance at this time. -Social work is discussing options for care with the , although he seems resistant to any idea other than taking her home. -Norris catheter at her request, so she does not have to get up and down to urinate. -Withhold Benadryl and any other medications with LEASE EXAMINER depressant effects. -PT/OT evaluation and treatment. -Office records indicate the has adamantly refused to consider assisted living in the past. We asked case management to look into the living situation as well. Her elderly may ultimately need more help at home with the patient, than they are currently receiving. -If her strength does not improve, consideration could be given to follow-up head CT and/or MRI. 2. Hypertension. Patient has had elevated blood pressures in her primary care office, as well as here today. Blood pressure seems to be improving though, now that she is comfortable. Continue to monitor. 3. I discussed CODE STATUS with the patient and her . He would like her to remain a full code at this time, even though we discussed that if she needed to be coated she would not likely have a good outcome. Next 4. DVT prophylaxis: Subcu heparin. 5. History of arthritis, osteopenia, compression fractures. Continue Tylenol as needed for pain. It sounds like she generally does not require more than that. #6. Cardiac. 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 She apparently has not had any events recently. Approximately 30 minutes was spent today, interviewing and examining the patient , reviewing plan of care with our multidisciplinary team, as well as with the , and writing orders.
[2017-02-20] MEDS: CHONDROITIN SULFATE PO SCH (09:32)
[2017-02-20] MEDS: GLUCOSAMINE SULFATE 1500 MG PO SCH (09:32)
[2017-02-20] MEDS: VITAMIN D3 1,000 UNIT TABLET PO SCH (09:32)
[2017-02-20] MEDS: cefTRIAXone 1 GM in DEXTROSE 5% IN WATER 50 ML IV SCH (09:32)
[2017-02-20] MEDS: ASPIRIN 81 MG TAB.CHEW PO SCH (09:32)
[2017-02-20] MEDS: MULTIVIT,THER IRON,CA,FA & MIN 1 TABLET PO SCH (09:32)
[2017-02-20] MEDS: CALCIUM W/VIT D3 500 MG TABLET PO SCH (09:32)
[2017-02-20] MEDS: ENOXAPARIN 40 MG/0.4 ML SYRINGE SQ SCH (09:32)
--- NOTE | 2017-02-20 09:41 | Discharge Summary ---
Medical - DS: Prov Patient information: Note initiated : 02/20/17 at 9:36 am Service Date, if different from initiated Date: [] Patient: Shantelle Evangelista 87 y/o F admitted on 02/18/17 for Weakness/UTI. Chief Complaint: Date of admission: 02/18/17 11:13 Discharge date: 02/20/17 Primary care physician: Francis Meek Admitting clinician: Rody Boyle Discharging clinician: Mariann Akins Medical - DS: Meds - Discharge Medications Active and Home Medications: Home Medications acetaminophen 325 mg tablet 650 mg PO Q4H PRN tab 01/06/15 [History Confirmed 02/18/17 Last Taken 02/17/17 21:00] aspirin 81 mg tablet,delayed release 81 mg PO QDAY tab 01/06/15 [History Confirmed 02/18/17 Last Taken 02/17/17 08:00] calcium carbonate-vitamin D3 600 mg calcium-200 unit capsule 1 cap PO QDAY cap 01/06/15 [History Confirmed 02/18/17 Last Taken 02/17/17 08:00] chondroitin sulfate A 250 mg capsule 250 mg PO QDAY cap 01/06/15 [History Confirmed 02/18/17 Last Taken 02/17/17 08:00] glucosamine sulfate 500 mg tablet 1,500 mg PO QDAY tab 01/06/15 [History Confirmed 02/18/17 Last Taken 02/17/17 08:00] vit C 150 mg-vit E 30 unit-lutein 5 ro-goovxtsg-[id number] 3 150 mg capsule 1 cap PO QDAY cap 01/06/15 [History Confirmed 02/18/17 Last Taken 02/17/17 08:00] fexofenadine 60 mg tablet 60 mg PO BID 11/21/16 [History Confirmed 02/18/17 Last Taken 02/17/17 08:00] Wheelchair 0 each .ROUTE .MEDSUPPLY 02/18/17 [History Confirmed 02/18/17 Last Taken Unknown] Docusate Sodium [Colace] 100 mg PO BID PRN capsule 02/20/17 [Rx Last Taken Unknown] Multivit,Ther Iron,Ca,FA & Min [Multivitamin W/Minerals] 1 tab PO DAILY tablet 02/20/17 [Rx Last Taken Unknown] Vitamin D3 1,000 unit PO DAILY tablet 02/20/17 [Rx Last Taken Unknown] Medical - DS: Hosp Hospital course: This is an 87-year-old female with a history of prior subdural hematoma in 2015 and recent recurrent falls. She has been living at home with her , primarily wheelchair-bound, but has been using home health services and progressing to occasional ambulation. She presented on 02/18/17 with increasing weakness requiring 2 person max assist to stand. Initially there was concern for urinary tract infection and she was treated with antibiotics, however, her UA was pristine. Her increased weakness is attributed to her newly trying Tylenol PM and she has improved slowly with discontinuing this medication. She has exhibited sundowning behavior here in the hospital. Her admits that she has memory problems at home and sometimes does not recognize him. Physical therapy has recommended rehabilitation at a intermediate facility. She, her and her son are all agreeable to this. Discharge diagnosis: weakness Secondary discharge diagnosis: Polypharmacy Elevated BP - Time Spent with Patient Total time spent providing and/or coordinating discharge services: Greater than 30 minutes Medical - DS: Exam - Constitutional Vitals: Vital Signs Temp Pulse Resp BP Pulse Ox 02/20/17 07:32 97.1 F 20 156/94 97 02/20/17 04:00 97.6 F 92 H 20 168/87 97 02/20/17 00:00 97.6 F 88 22 118/70 97 02/19/17 19:40 97.5 F 95 H 22 128/75 97 02/19/17 11:38 98.2 F 80 20 151/87 98 Intake and Output 02/19/17 02/20/17 02/20/17 21:59 05:59 13:59 Intake Total 1100 / 1100 1073 / 1073 Output Total 1600 / 1600 Balance 1100 / 1100 -527 / -527 Intake: IV 1000 / 1000 973 / 973 Oral 100 / 100 100 / 100 Output: Urine Catheter Amount 1600 / 1600 Other: Meal Dinner Percent of Meal Consumed 100% Feeding Ability Independent Weight 130 lb General appearance: no acute distress Additional comments: sleeping, but awakens easily to voice. and son are in room. HEENT: NCAT. MMM CV: RRR Resp: CTAB NRO: Alert and oriented to self and season. Cannot tell me year. Thinks she is in a rest home. Medical - DS: Data Labs on day of discharge: Labs from last 24 hours 02/20/17 04:54 Sodium 134 Potassium 4.2 Chloride 100 Carbon Dioxide 23 Anion Gap 11.0 BUN 8 Creatinine 0.5 L GFR Calculation 87 Glucose 129 H Uric Acid 2.5 Calcium 8.5 L Phosphorus 2.7 Magnesium 1.9 Total Bilirubin 0.3 Direct Bilirubin < 0.2 GGT 11 AST 20 ALT 12 Alkaline Phosphatase 66 Lactate Dehydrogenase 184 Total Protein 6.4 Albumin 3.4 Globulin 3.0 Albumin/Globulin Ratio 1.1 Triglycerides 74 Preliminary micro results at discharge 02/18/17 12:18 Blood Culture - Preliminary Blood Medical - DS: A/P - Patient/Caregiver Discharge Instructions Activity: as per physical therapy Diet: Regular Diet Additional Instructions: F/U with PCP in 1 week. - Follow up Plan Follow up with: Francis Meek MD [Primary Care Provider] - (Dr Meek's office staff will call you with an appointment date and time.) Disposition: Xfer SNF Prognosis: Fair Rehab Potential: Fair I certify that the patient requires SNF services: Yes Overall status at discharge: patient is progressing back to baseline
== END 2017-02-20 10:55 ==
LOC: MEDSUR 06:55 → ED 06:55 → MEDSUR 11:14
PROVIDERS: ADMIT Internal Medicine; ATTEND Internal Medicine